=== PATIENT | female | born 1990 | race African-American/Black ===

== ENCOUNTER 2017-07-08 12:34 | Emergency (ER) | payer MEDICAID ==
[~2017-07-08] VITALS: Ht 170.2 cm; Wt 58.1 kg
[~2017-07-08 12:34] MED LIST: albuterol inh
[2017-07-08 12:41] VITALS: BP 104/69
== END 2017-07-08 13:16 | disposition home or self-care (01) ==
LOC: ED 13:10
DX: K12.0 Recurrent oral aphthae (principal); J45.909 Unspecified asthma, uncomplicated
CPT/HCPCS: 99282

== ENCOUNTER 2017-09-28 13:12 | Emergency (ER) | payer MEDICAID ==
[~2017-09-28] VITALS: Ht 172.7 cm; Wt 56.1 kg
[2017-09-28 13:13] VITALS: BP 129/66
== END 2017-09-28 15:38 | disposition home or self-care (01) ==
LOC: ED 15:25
DX: R10.2 Pelvic and perineal pain (principal)
CPT/HCPCS: 99281

== ENCOUNTER 2017-10-25 16:57 | Emergency (ER) | payer MEDICAID | END 2017-10-25 18:50 | disposition left against medical advice (07) | LOC: ED 18:45 | DX: R10.9 Unspecified abdominal pain (principal); Z53.21 Procedure and treatment not carried out due to patient leaving prior to being seen by health care provider ==

== ENCOUNTER 2017-12-06 14:40 | Emergency (ER) | payer MEDICAID ==
[~2017-12-06] VITALS: Ht 170.2 cm; Wt 61.5 kg
[2017-12-06 14:46] VITALS: BP 115/71
[2017-12-06] MEDS ORDERED: SODIUM CHLORIDE 0.9% 1,000ML IVBOLUS ONE (15:30)
[2017-12-06] MEDS ORDERED: SODIUM CHLORIDE FLUSH 10ML SYR IVF ONE (15:30)
[2017-12-06 16:22] LABS: ALBUMIN 3.6 g/dL (3.4-5.0); ANION GAP 8 mmol/L (5-15); CALCIUM 9.4 mg/dL (8.5-10.1); CHLORIDE 102 mmol/L (98-107); CREATININE 0.78 mg/dL (0.55-1.02)
[2017-12-06 16:49] LABS: BASOPHILS # (AUTO) 0.05 x10^3/uL (0-0.1); BASOPHILS % (AUTO) 1 % (0-1); EOSINOPHILS # (AUTO) 0.07 x10^3/uL (0-0.4); EOSINOPHILS % (AUTO) 1 % (1-7); LYMPHOCYTES % (AUTO) 17 % (22-44); MD NO; MEAN CORPUSCULAR HEMOGLOBIN 25.3 pg (27.0-34.8); MEAN CORPUSCULAR HGB CONC 32.7 g/dL (32.4-35.8); MEAN CORPUSCULAR VOLUME 77.2 fL (80-100); MEAN PLATELET VOLUME 10.3 fL (7.4-10.4); MONOCYTES # (AUTO) 0.67 x10^3/uL (0.2-0.8); MONOCYTES % (AUTO) 9 % (2-9); NEUTROPHILS % (AUTO) 72 % (42-75); PLATELET COUNT 208 x10^3/uL (130-400); RED BLOOD COUNT 4.85 x10^6/uL (3.82-5.3); RED CELL DISTRIBUTION WIDTH 14.4 % (9.6-15.2)
[2017-12-06 16:59] LABS: MICROSCOPIC NOT IND
[2017-12-06 17:07] LABS: CULTURE INDICATED? NO
== END 2017-12-06 18:36 | disposition home or self-care (01) ==
LOC: ED 18:30
DX: O26.891 Other specified pregnancy related conditions, first trimester (principal); O99.511 Diseases of the respiratory system complicating pregnancy, first trimester; R51 Headache; Z3A.12 12 weeks gestation of pregnancy
CPT/HCPCS: 36415; 80048; 81003; 82040; 85025; 99284

== ENCOUNTER 2018-01-04 13:00 | Emergency (ER) | payer MEDICAID ==
[~2018-01-04] VITALS: Ht 170.2 cm; Wt 62.7 kg
[2018-01-04 13:04] VITALS: BP 120/63
[2018-01-04 14:51] LABS: ALBUMIN 3.6 g/dL (3.4-5.0); ANION GAP 6 mmol/L (5-15); CALCIUM 9.1 mg/dL (8.5-10.1); CHLORIDE 107 mmol/L (98-107); CREATININE 0.88 mg/dL (0.55-1.02)
[2018-01-04 14:59] LABS: <RBC MORPHOLOGY> NORMAL; BASOPHILS # (AUTO) 0.01 x10^3/uL (0-0.1); BASOPHILS % (AUTO) 0 % (0-1); EOSINOPHILS # (AUTO) 0.05 x10^3/uL (0-0.4); EOSINOPHILS % (AUTO) 1 % (1-7); LYMPHOCYTES # (AUTO) 1.16 x10^3/uL (1-3.4); LYMPHOCYTES % (AUTO) 22 % (22-44); MD MORPH REVIEW ONLY; MEAN CORPUSCULAR HEMOGLOBIN 25.3 pg (27.0-34.8); MEAN CORPUSCULAR HGB CONC 32.4 g/dL (32.4-35.8); MEAN CORPUSCULAR VOLUME 78.1 fL (80-100); MEAN PLATELET VOLUME 10.1 fL (7.4-10.4); MONOCYTES # (AUTO) 0.38 x10^3/uL (0.2-0.8); MONOCYTES % (AUTO) 7 % (2-9); NEUTROPHILS # (AUTO) 3.58 x10^3/uL (1.8-6.8); NEUTROPHILS % (AUTO) 69 % (42-75); PLATELET COUNT 165 x10^3/uL (130-400); RED CELL DISTRIBUTION WIDTH 14.5 % (9.6-15.2)
[2018-01-04 15:00] LABS: <PLATELET ESTIMATE> ADEQUATE; GIANT PLATELETS 1+; LARGE PLATELETS 1+
== END 2018-01-04 15:07 | disposition home or self-care (01) ==
LOC: ED 15:01
DX: O26.892 Other specified pregnancy related conditions, second trimester (principal); R10.30 Lower abdominal pain, unspecified; Z3A.16 16 weeks gestation of pregnancy
CPT/HCPCS: 36415; 80048; 82040; 84702; 85025; 99284

== ENCOUNTER 2018-01-08 12:27 | Emergency (ER) | payer MEDICAID ==
[~2018-01-08] VITALS: Ht 170.2 cm; Wt 62.0 kg
[2018-01-08 13:35] LABS: CULTURE INDICATED? YES; MICROSCOPIC INDICATED
[2018-01-08 14:52] VITALS: BP 128/72
== END 2018-01-08 15:54 | disposition home or self-care (01) ==
LOC: ED 13:34
DX: O26.892 Other specified pregnancy related conditions, second trimester (principal); Z3A.16 16 weeks gestation of pregnancy; R10.2 Pelvic and perineal pain
CPT/HCPCS: 76815; 81001; 87086; 99285

== ENCOUNTER 2019-03-08 15:23 | Emergency (ER) | payer MEDICAID ==
[~2019-03-08] VITALS: Ht 170.2 cm; Wt 61.5 kg
[~2019-03-08 15:23] MED LIST changes: +PRENATAL PO
[2019-03-08] MEDS ORDERED: ONDANSETRON 2MG/ML, 2ML ONE (15:46)
[2019-03-08] MEDS ORDERED: ONDANSETRON 2MG/ML, 2ML IVPush ONE (16:00)
[2019-03-08 16:02] LABS: ALANINE AMINOTRANSFERASE 23 U/L (12-78); ANION GAP 7 mmol/L (5-15); BASOPHILS # (AUTO) 0.02 x10^3/uL (0-0.1); BASOPHILS % (AUTO) 1 % (0-1); CALCIUM 8.8 mg/dL (8.5-10.1); CHLORIDE 110 mmol/L (98-107); CREATININE 1.09 mg/dL (0.55-1.02); EOSINOPHILS # (AUTO) 0.08 x10^3/uL (0-0.4); EOSINOPHILS % (AUTO) 2 % (1-7); LYMPHOCYTES # (AUTO) 1.55 x10^3/uL (1-3.4); LYMPHOCYTES % (AUTO) 33 % (22-44); MD NO; MEAN CORPUSCULAR HGB CONC 32.7 g/dL (32.4-35.8); MEAN CORPUSCULAR VOLUME 76.3 fL (80-100); MEAN PLATELET VOLUME 10.9 fL (7.4-10.4); MONOCYTES # (AUTO) 0.46 x10^3/uL (0.2-0.8); MONOCYTES % (AUTO) 10 % (2-9); NEUTROPHILS % (AUTO) 55 % (42-75); PLATELET COUNT 263 x10^3/uL (130-400); RED BLOOD COUNT 5.09 x10^6/uL (3.82-5.3); RED CELL DISTRIBUTION WIDTH 15.8 % (9.6-15.2)
[2019-03-08 16:04] LABS: ALKALINE PHOSPHATASE 140 U/L (45-117); BILIRUBIN,TOTAL 0.9 mg/dL (0.2-1.0); TOTAL PROTEIN 7.2 g/dL (6.4-8.2)
--- NOTE | 2019-03-08 16:05 | NUR ---
IV STARTED, PT MEDICATED PER ORDERS. RV'WD POC WITH HER. INFANT DAUGHTER ON [facility] WITH PT.
[2019-03-08] MEDS ORDERED: SODIUM CHLORIDE FLUSH 10ML SYR IVF ONE (17:00)
[2019-03-08] MEDS ORDERED: IBUPROFEN 600 MG TABLET PO ONE (17:00)
--- NOTE | 2019-03-08 17:50 | NUR ---
ERP AT BS FOR RE-EVAL.
[2019-03-08 17:59] LABS: HCG UR SG 1.018 (1.003-1.030); MICROSCOPIC NOT IND
[2019-03-08 18:02] LABS: CULTURE INDICATED? NO
[2019-03-08 18:16] VITALS: BP 121/64
--- NOTE | 2019-03-08 18:21 | NUR ---
ERP WAS IN FOR RE-EVAL. D/C INSTRUCTIONS & F/U APPT RV'WD WITH PT, SHE VERBALIZES UNDERSTANDING. AMBULATED OUT OF ED WITHOUT DIFFICULTY.
== END 2019-03-08 18:23 | disposition home or self-care (01) ==
LOC: ED 18:06
DX: K52.9 Noninfective gastroenteritis and colitis, unspecified (principal); J45.909 Unspecified asthma, uncomplicated
CPT/HCPCS: 36415; 80053; 81003; 81025; 83690; 84703; 85025; 96374; 99284; J2405